=== PATIENT | female | born 1955 | race Caucasian/White ===

== ENCOUNTER 2016-07-04 17:33 | Inpatient (IN) | payer OTHER ==
--- NOTE | 2016-07-04 18:36 | EDPHY ---
HPI/HX/ROS/PE/MDM Narrative: CHIEF COMPLAINT: Trigeminal neuralgia HPI: The patient is a 61 y/o female with a history of trigeminal neuralgia and fibromyalgia, complaining of facial pain that is making it difficult for her to eat, drink, and talk for the last 3 days[address] She went to Dr. Olvera, ENT, yesterday for these symptoms. He ordered a CT of her sinuses that she had done today at [facility], but hasn't received results yet. They went to urgent care prior to presenting here and received IV fluids for rehydration but did not prescribe pain medications. Her says that "ingesting liquid or solid triggers the trigeminal neuralgia" and is requesting "something to cut the pain enough so she can take oral medication at home" and is specifically requesting an oral pain medication for her to take home and well as IV pain medications here. She has an appointment scheduled with her neurologist for Thursday, but feels she cannot wait that long. History primarily obtained from and partially from patient through writing as talking causes pain. REVIEW OF SYSTEMS: Aside from elements discussed in the HPI, a comprehensive 10-point review of systems was reviewed and is negative. PMH: Trigeminal neuralgia, fibromyalgia SOCIAL HISTORY: at bedside ENT: Dr. Olvera Neurologist: Dr. De La O PHYSICAL EXAM: General:Patient is alert, in no acute distress. ENT:Eyes are normal to inspection. ENT inspection normal. Neck: Normal inspection. Full range of motion. Respiratory:No respiratory distress. Breath sounds normal bilaterally. Cardiovascular: Regular rate and rhythm. Strong peripheral pulses. Normal cap refill. Abdomen:The abdomen is nontender to palpation. There are no peritoneal signs. There are normal bowel sounds. Back: Normal to inspection. No tenderness to palpation. Skin: Normal color. No rash. Warm and dry. Extremities: Normal appearance. Full range of motion. Neuro: Oriented x3. Normal motor function. Normal sensory function. ED Course: IV established. Labs drawn including CBC, CHEM. 1L IV NS, 0.5mg IV Dilaudid, and 10mg IV Decadron administered. 2049: Reevaluated patient. She still cannot tolerate talking or swallowing. She does not think she will be able to drink water at home. Plan for admission for pain control and continued hydration. 2109: Spoke with Dr. Plaza, hospitalist. He accepts admission. MDM: This patient presents with severe facial pain that she attributes to a diagnosis of trigeminal neuralgia. Her affect is very unusual and she is essentially sits in the emergency department room with her face completely flaccid and needs to write everything down because speaking is too painful. None of the pain medications we tried here in the emergency department very helpful. Patient is requesting a complete evaluation by Neurology and prescriptions for multiple agents to try and control trigeminal neuralgia. I explained that given the fact she is still unable to tolerate anything by mouth here in the emergency department that she will require admission to the hospital for further workup. I am unclear whether this patient truly has trauma gentleman neuralgia, but there certainly seems to be a complex pain syndrome at work. - Data Points Laboratory Results: Laboratory Results 07/04/16 18:40 07/04/16 18:40 07/04/16 07/04/16 18:40 18:40 WBC 6.05 10^3/uL 10^3/uL (3.80-9.50) RBC 4.32 10^6/uL 10^6/uL (4.18-5.33) Hgb 14.1 g/dL g/dL (12.6-16.3) Hct 42.0 % % (38.0-47.0) MCV 97.2 fL fL (81.5-99.8) MCH 32.6 pg pg (27.9-34.1) MCHC 33.6 g/dL g/dL (32.4-36.7) RDW 12.5 % % (11.5-15.2) Plt Count 187 10^3/uL 10^3/uL (150-400) MPV 9.8 fL fL (8.7-11.7) Neut % (Auto) 60.6 % % (39.3-74.2) Lymph % (Auto) 28.9 % % (15.0-45.0) [place] % (Auto) 8.3 % % (4.5-13.0) Eos % (Auto) 1.2 % % (0.6-7.6) Baso % (Auto) 0.7 % % (0.3-1.7) Nucleat RBC Rel Count 0.0 % % (0.0-0.2) Absolute Neuts (auto) 3.67 10^3/uL 10^3/uL (1.70-6.50) Absolute Lymphs (auto) 1.75 10^3/uL 10^3/uL (1.00-3.00) Absolute Monos (auto) 0.50 10^3/uL 10^3/uL (0.30-0.80) Absolute Eos (auto) 0.07 10^3/uL 10^3/uL (0.03-0.40) Absolute Basos (auto) 0.04 10^3/uL 10^3/uL (0.02-0.10) Absolute Nucleated RBC 0.00 10^3/uL 10^3/uL (0-0.01) Immature Gran % 0.3 % % (0.0-1.1) Immature Gran # 0.02 10^3/uL 10^3/uL (0.00-0.10) Sodium 141 mEq/L mEq/L (134-144) Potassium 4.3 mEq/L mEq/L (3.5-5.2) Chloride 107 mEq/L mEq/L (97-110) Carbon Dioxide 21 mEq/l L mEq/l (22-31) Anion Gap 13 mEq/L mEq/L (8-16) BUN 30 mg/dL H mg/dL (7-23) Creatinine 0.6 mg/dL mg/dL (0.6-1.0) Estimated GFR > 60 Glucose 63 mg/dL L mg/dL (70-100) Calcium 9.4 mg/dL mg/dL (8.5-10.4) Medications Given: Discontinued Medications Dexamethasone (Decadron Injection) 10 mg IVP EDNOW ONE Stop: 07/04/16 18:56 Last Admin: 07/04/16 19:15 Dose: 10 mg Hydromorphone HCl (Dilaudid) 0.5 mg IVP EDNOW ONE Stop: 07/04/16 18:55 Last Admin: 07/04/16 19:15 Dose: 0.5 mg Hydromorphone HCl (Dilaudid) 0.5 mg IVP EDNOW ONE Stop: 07/04/16 20:04 Last Admin: 07/04/16 20:04 Dose: 0.5 mg Sodium Chloride (Ns) 1,000 mls @ 0 mls/hr IV ONCE ONE PRN Reason: Wide Open Stop: 07/04/16 18:52 Last Admin: 07/04/16 19:15 Dose: 1,000 mls General Time Seen by Provider: 07/04/16 18:20 Initial Vital Signs: Initial Vital Signs Temperature (C) 36.4 C 07/04/16 17:38 Heart Rate 96 07/04/16 17:38 Respiratory Rate 20 07/04/16 17:38 Blood Pressure 155/98 H 07/04/16 17:38 O2 Sat (%) 96 07/04/16 17:38 O2 Delivery Mode Room Air Allergies/Adverse Reactions: cobalt [[place]] Allergy (Intermediate, Verified 06/08/12 14:26) Gold Salts Allergy (Intermediate, Verified 06/08/12 14:26) nickel [Nickel] Allergy (Intermediate, Verified 06/08/12 14:26) Penicillins Allergy (Intermediate, Verified 06/08/12 14:26) Sulfa (Sulfonamide Antibiotics) Allergy (Intermediate, Verified 06/08/12 14:26) vancomycin Allergy (Intermediate, Verified 06/08/12 14:26) aspirin Allergy (Mild, Verified 06/08/12 14:26) diphenhydramine HCl [From Benadryl] Allergy (Verified 03/14/16 13:19) donnetal Allergy (Intermediate, Uncoded 06/08/12 14:26) dust,mold,trees Allergy (Mild, Uncoded 06/08/12 14:26) Home Medications: Medication Instructions Recorded Acetaminophen/Caffeine [Excedrin 2 each PO Q8 PRN 03/14/16 Tension Headache Cplt] Cetirizine [ZyrTEC 10 mg (*)] 10 mg PO Q2D@2100 03/14/16 Guaifenesin 50 mg PO DAILY PRN 03/14/16 Herbals/Supplements -Info Only 1 ea PO AD 03/14/16 Hyoscyamine Sulfate [Levsin, 0.3125 mg PO DAILY PRN 03/14/16 Hyomax-Sl 0.125 mg (*)] Melatonin [Melatonin 3 MG (*)] 3 mg PO HS 03/14/16 Pseudoephedrine HCl [Sudafed 30mg 30 mg PO BID 03/14/16 (OTC)] Cholecalciferol Vit D3 [Vitamin D3 1,000 units PO DAILY 07/04/16 (*)] Estradiol [Minivelle] 1 each TD MOTH 07/04/16 Glutathione Iv 1 ea IV Q7D 07/04/16 Loratadine [Claritin 10 mg] 10 mg PO Q2D@2100 07/04/16 Progesterone 52mg Tablet Compounded 1 tab PO HS 07/04/16 Pseudoephedrine HCl [Sudafed 30mg 30 mg PO HS PRN 07/04/16 (OTC)] Oxcarbazepine [Trileptal] 150 mg PO BID #60 tablet 07/06/16 Departure - Departure Disposition: [facility] Acute Clinical Impression: Trigeminal neuralgia Condition: Good Report Scribed for: Basilio Reed Report Scribed by: Mary Pitt Date of Report: 07/04/16 Time of Report: 18:32 Physician Review and Approval Statement: Portions of this note were transcribed by an ED scribe. I personally performed the history, physical exam, and medical decision making; and confirm the accuracy of the information in the transcribed note.
[2016-07-04] MEDS ORDERED: NS 1,000 ML IV ONE (18:51)
[2016-07-04] MEDS ORDERED: HYDROmorphONE/DILAUDID 1 MG/ML SYR IVP ONE ×2 (18:54→20:03)
[2016-07-04] MEDS ORDERED: DEXAMETHASONE 10 MG/ML VIAL IVP ONE (18:55)
[2016-07-04 19:24] LABS: % IMMATURE GRANULYOCYTES 0.3 % (0.0-1.1); ABSOLUTE IMMATURE GRANULOCYTES 0.02 10^3/uL (0.00-0.10); ADD DIFF? NO; ADD MORPH? NO; ADD SCAN? NO; ATYPICAL LYMPHOCYTE FLAG 0 (0-99); FRAGMENT RBC FLAG 0 (0-99); HEMOGLOBIN 14.1 g/dL (12.6-16.3); LEFT SHIFT FLG 0 (0-99); LIPEMIA HEMOLYSIS FLAG 80 (0-99); MEAN CELL HEMOGLOBIN 32.6 pg (27.9-34.1); MEAN CELL HEMOGLOBIN CONCENTR. 33.6 g/dL (32.4-36.7); MEAN CELL VOLUME 97.2 fL (81.5-99.8); MEAN PLATELET VOLUME 9.8 fL (8.7-11.7); PLATELET CLUMPS FLAG 0 (0-99); PLATELET COUNT 187 10^3/uL (150-400); RED BLOOD CELL COUNT 4.32 10^6/uL (4.18-5.33); RED CELL DISTRIBUTION WIDTH 12.5 % (11.5-15.2)
[2016-07-04 19:45] LABS: ANION GAP 13 mEq/L (8-16); CALCIUM 9.4 mg/dL (8.5-10.4); CARBON DIOXIDE 21 mEq/l (22-31); CHLORIDE 107 mEq/L (97-110); CREATININE 0.6 mg/dL (0.6-1.0); GLOMERULAR FILTRATION RATE > 60; GLUCOSE 63 mg/dL (70-100); POTASSIUM 4.3 mEq/L (3.5-5.2); SODIUM 141 mEq/L (134-144)
[2016-07-04] MEDS ORDERED: HYDROmorphONE/DILAUDID 1 MG/ML SYR ONE (20:01)
[2016-07-04] MEDS ORDERED: ONDANSETRON DISINTEGRATING 4 MG TAB PO PRN (22:14)
[2016-07-04] MEDS ORDERED: ACETAMINOPHEN 325 MG TAB PO PRN (22:14)
[2016-07-04] MEDS ORDERED: ONDANSETRON 4 MG/2 ML VIAL IVP PRN (22:14)
[2016-07-04] MEDS ORDERED: NALOXONE HCL 0.4 MG/ML INJ IVP PRN (22:17)
[2016-07-04] MEDS ORDERED: HYDROmorphONE/DILAUDID 6 MG/30 ML PCA IV PRN (22:17)
[2016-07-04] MEDS: NS 1,000 ML IV SCH (22:57)
[2016-07-05] MEDS: DIAZEPAM 10 MG/2 ML SYR IVP PRN ×2 (00:06→07:16)
--- NOTE | 2016-07-05 03:16 | PDGENHP ---
History and Physical - Chief Complaint R facial pain - History of Present Illness Patient is a 61-year-old female with history of trigeminal neuralgia, fibromyalgia, IBS and restless leg syndrome presents to the ED complaining of severe left facial pain. Patient states symptoms started on 06/29 with increase in her R facial pain consistent with her TN, described as a sharp, shooting type pain occasionally associated with spasm of her facial muscles. Initially her pain and symptoms were sporadic and intermittent however over the following days the frequency of her symptoms increased. By 07/01 patient began noticing difficulty swallowing due to the acute pain in her right face. She states that any movements of her facial muscles provoke intense pain. Since this time patient has been unable to maintain p.o. intake of food or liquids, or even talking due to fear of triggering her pain. On 07/03 patient was evaluated by an ENT for her difficulty swallowing, CT of the c-spine was performed at [facility], patient was given a copy of the images on CD. Patient scheduled an appointment with her neurologist for 07/08, however the severity and persistence of her symptoms that made her come to the ED for further evaluation tonight. She denies any recent fevers, chills, dizziness, lightheadedness, chest pain, shortness of breath or cough. She does report associated headache, but denies any vision changes. Regarding her trigeminal neurologia, patient follows with Dr. Casper of Neurology, is not not currently on any prescribed therapy, has previously been on oxcarbazepine/carbamazepine. Patient reports current symptoms is consistent with a more severe exacerbation of her TN. She does report milder symptoms occurred in April, last for only 1 day and not nearly as severe. on arrival the ED patient was afebrile hemodynamically stable. Labs revealed normal CBC, elevated BUN, low glucose on BMP. Patient was given IV pain control and admitted to the hospital service for further management. History Information - Allergies/Home Medication List Allergies/Adverse Reactions: cobalt [[place]] Allergy (Intermediate, Verified 06/08/12 14:26) Gold Salts Allergy (Intermediate, Verified 06/08/12 14:26) nickel [Nickel] Allergy (Intermediate, Verified 06/08/12 14:26) Penicillins Allergy (Intermediate, Verified 06/08/12 14:26) Sulfa (Sulfonamide Antibiotics) Allergy (Intermediate, Verified 06/08/12 14:26) vancomycin Allergy (Intermediate, Verified 06/08/12 14:26) aspirin Allergy (Mild, Verified 06/08/12 14:26) diphenhydramine HCl [From Benadryl] Allergy (Verified 03/14/16 13:19) donnetal Allergy (Intermediate, Uncoded 06/08/12 14:26) dust,mold,trees Allergy (Mild, Uncoded 06/08/12 14:26) Home Medications: Acetaminophen/Caffeine [Excedrin Tension Headache Cplt] 2 each PO Q8 PRN [Last Taken 07/04/16 10:00] Cetirizine [ZyrTEC 10 mg (*)] 10 mg PO Q2D@209903/14/16 [Last Taken 07/02/16] Guaifenesin 50 mg PO DAILY PRN 03/14/16 [Last Taken 07/03/16] Herbals/Supplements -Info Only 1 ea PO AD 03/14/16 [Last Taken Unknown] Hyoscyamine Sulfate [Levsin, Hyomax-Sl 0.125 mg (*)] 0.3125 mg PO DAILY PRN [Last Taken Unknown] Melatonin [Melatonin 3 MG (*)] 3 mg PO HS 03/14/16 [Last Taken 07/03/16] Pseudoephedrine HCl [Sudafed] 30 mg PO BID 03/14/16 [Last Taken Unknown] Cholecalciferol Vit D3 [Vitamin D3 (*)] 1,000 units PO DAILY 07/04/16 [Last Taken Unknown] Estradiol [Minivelle] 1 each TD MOTH 07/04/16 [Last Taken 07/03/16] Glutathione Iv 1 ea IV Q7D 07/04/16 [Last Taken Unknown] Loratadine [Claritin 10 mg] 10 mg PO Q2D@209907/04/16 [Last Taken 07/03/16] Progesterone 52mg Tablet Compounded 1 tab PO HS 07/04/16 [Last Taken Unknown] Pseudoephedrine HCl [Sudafed] 30 mg PO HS PRN 07/04/16 [Last Taken Unknown] I have personally reviewed and updated: family history, medical history, social history, surgical history Past Medical History: history limited by patient's limited ability speak due to her pain - Past Medical History Additional medical history: Trigeminal neuralgia. fibromyalgia. restless leg syndrome. IBS - Surgical History Reports: no pertinent surgical hx - Social History Smoking Status: Never smoked Alcohol Use: None Drug Use: None Additional social history: is retired [employer] professor, therapist. lives with her Review of Systems ROS: 10pt was reviewed & negative except for what was stated in HPI & below Physical Exam Temp Pulse Resp BP Pulse Ox 36.4 C 89 14 138/87 H 94 07/04/16 23:56 07/05/16 02:28 07/05/16 02:28 07/05/16 02:28 07/05/16 02:28 Constitutional: no apparent distress, appears nourished, uncomfortable Eyes: PERRL, anicteric sclera, EOMI, No scleral injection Ears, Nose, Mouth, Throat: hearing normal, ears appear normal, no oral mucosal ulcers, dry mucous membranes Cardiovascular: regular rate and rhythym, no murmur, rub, or gallop, pulses symmetric bilaterally, tachycardia, No JVD, No edema Peripheral Pulses: 2+: dorsalis-pedis (R), dorsalis-pedis (L) Respiratory: no respiratory distress, no rales or rhonchi, clear to auscultation Gastrointestinal: normoactive bowel sounds, soft, non-tender abdomen, no palpable masses, No guarding, No rebound Genitourinary: no bladder fullness, no bladder tenderness Skin: warm, normal color, no rashes or abrasions, no fluctuance, no induration, No mottled Musculoskeletal: full muscle strength, no muscle tenderness, normal joint ROM, no joint effusions, pain with ROM ( of jaw and facial muscles) Neurologic: AAOx3, sensation intact bilaterally, CN II-XII Intact, other (acute tenderness with light palpation of entire R face and neck; occasional facial muscle spasm), No weakness, No numbness Psychiatric: not encephalopathic, thought process linear, anxious Lab Data & Imaging Review 07/05/16 04:27 07/05/16 04:27 WBC 6.05 10^3/uL (3.80-9.50) 07/04/16 18:40 RBC 4.32 10^6/uL (4.18-5.33) 07/04/16 18:40 Hgb 14.1 g/dL (12.6-16.3) 07/04/16 18:40 Hct 42.0 % (38.0-47.0) 07/04/16 18:40 MCV 97.2 fL (81.5-99.8) 07/04/16 18:40 MCH 32.6 pg (27.9-34.1) 07/04/16 18:40 MCHC 33.6 g/dL (32.4-36.7) 07/04/16 18:40 RDW 12.5 % (11.5-15.2) 07/04/16 18:40 Plt Count 187 10^3/uL (150-400) 07/04/16 18:40 MPV 9.8 fL (8.7-11.7) 07/04/16 18:40 Neut % (Auto) 60.6 % (39.3-74.2) 07/04/16 18:40 Lymph % (Auto) 28.9 % (15.0-45.0) 07/04/16 18:40 [place] % (Auto) 8.3 % (4.5-13.0) 07/04/16 18:40 Eos % (Auto) 1.2 % (0.6-7.6) 07/04/16 18:40 Baso % (Auto) 0.7 % (0.3-1.7) 07/04/16 18:40 Nucleat RBC Rel Count 0.0 % (0.0-0.2) 07/04/16 18:40 Absolute Neuts (auto) 3.67 10^3/uL (1.70-6.50) 07/04/16 18:40 Absolute Lymphs (auto) 1.75 10^3/uL (1.00-3.00) 07/04/16 18:40 Absolute Monos (auto) 0.50 10^3/uL (0.30-0.80) 07/04/16 18:40 Absolute Eos (auto) 0.07 10^3/uL (0.03-0.40) 07/04/16 18:40 Absolute Basos (auto) 0.04 10^3/uL (0.02-0.10) 07/04/16 18:40 Absolute Nucleated RBC 0.00 10^3/uL (0-0.01) 07/04/16 18:40 Immature Gran % 0.3 % (0.0-1.1) 07/04/16 18:40 Immature Gran # 0.02 10^3/uL (0.00-0.10) 07/04/16 18:40 Sodium 141 mEq/L (134-144) 07/04/16 18:40 Potassium 4.3 mEq/L (3.5-5.2) 07/04/16 18:40 Chloride 107 mEq/L (97-110) 07/04/16 18:40 Carbon Dioxide 21 mEq/l (22-31) L 07/04/16 18:40 Anion Gap 13 mEq/L (8-16) 07/04/16 18:40 BUN 30 mg/dL (7-23) H 07/04/16 18:40 Creatinine 0.6 mg/dL (0.6-1.0) 07/04/16 18:40 Estimated GFR > 60 07/04/16 18:40 Glucose 63 mg/dL (70-100) L 07/04/16 18:40 Calcium 9.4 mg/dL (8.5-10.4) 07/04/16 18:40 Assessment & Plan Assessment: patient is a 61-year-old female with history of trigeminal neuralgia who presents to the ED complaining of 1 week of intense right-sided facial pain consistent with her TN pain, that has recently a impaired her ability to speak and swallow. Plan: # acute trigeminal neuralgia pain Patient reports acute, severe pain and spasm of her R face, neck and upper back. She reports her symptoms are consistent with her TN, in acute exacerbation. She reports having success in controlling her symptoms with carbamazepine and/or oxcarbazepine, and is interested in starting this, however , currently cannot take PO intake due to her acute facial spasm and pain. States any facial muscle movement creates intense 10/10 pain. Will attempt to control her pain and spasm with IV pain med and benzos to tolerate oral intake. Will start oxycarbazepine once able to take PO. Will also obtain neurology consult and obtain MRI brain to r/o underlying structural/vasculature abnormality. # dysphagia/dysphonia Patient reports intense R facial pain with any facial muscle movement, especially with swallowing. She had a CT cspine to evaluated this on 07/03, will need to locate CD (with pt's ) or contact [facility] for the report. Infectious etiology/abscess is on the differential, however, patient without any other infectious symptoms/signs, and presentation appears to be related to the TN. # elevated BUN Patient has been unable to maintain any oral intake since 07/01. Labs reveal evidence of mild dehydration, will give gentle IVF hydration and attempt to control symptoms to allow for po intake. # dispo: will admit under observation status, patient may be ok for discharge once symptoms are controlled and able to take po # full code *patient was seen and evaluated on 07/04; patient encounter will be billed for .
[2016-07-05 05:15] LABS: % IMMATURE GRANULYOCYTES 0.3 % (0.0-1.1); ABSOLUTE IMMATURE GRANULOCYTES 0.02 10^3/uL (0.00-0.10); ADD DIFF? NO; ADD MORPH? NO; ADD SCAN? NO; ATYPICAL LYMPHOCYTE FLAG 0 (0-99); FRAGMENT RBC FLAG 0 (0-99); LEFT SHIFT FLG 0 (0-99); LIPEMIA HEMOLYSIS FLAG 80 (0-99); MEAN CELL HEMOGLOBIN CONCENTR. 33.3 g/dL (32.4-36.7); MEAN CELL VOLUME 96.1 fL (81.5-99.8); MEAN PLATELET VOLUME 9.9 fL (8.7-11.7); PLATELET CLUMPS FLAG 0 (0-99); PLATELET COUNT 176 10^3/uL (150-400); RED BLOOD CELL COUNT 4.06 10^6/uL (4.18-5.33); RED CELL DISTRIBUTION WIDTH 12.2 % (11.5-15.2)
[2016-07-05 05:34] LABS: ANION GAP 10 mEq/L (8-16); CALCIUM 8.6 mg/dL (8.5-10.4); CARBON DIOXIDE 20 mEq/l (22-31); CHLORIDE 110 mEq/L (97-110); CREATININE 0.6 mg/dL (0.6-1.0); GLOMERULAR FILTRATION RATE > 60; GLUCOSE 100 mg/dL (70-100); POTASSIUM 4.6 mEq/L (3.5-5.2); SODIUM 140 mEq/L (134-144)
[2016-07-05 05:38] LABS: INR 1.05 (0.83-1.16); PROTIME(PATIENT) 13.6 SEC (12.0-15.0)
[2016-07-05 05:39] LABS: APTT 26.5 SEC (23.0-38.0)
[2016-07-05] MEDS: OXcarbazepine 300 MG TAB PO SCH ×2 (08:45→20:07)
[2016-07-05] MEDS: ENOXAPARIN 40 MG/0.4 ML SYR SC SCH (08:45)
[2016-07-05 09:18] LABS: HEMATOCRIT 39.9 % (38.0-47.0)
--- NOTE | 2016-07-05 10:57 | PDCONSULT ---
[employer] Note: HOSPITAL NEUROLOGY CONSULT REQUESTING: Irma Munson DO REASON: trigeminal neuralgia - acute HPI: This is a 61-year-old woman with a history of trigeminal neuralgia on the right , IBS, fibromyalgia and RLS who presented to Emergency Department yesterday due to acute exacerbation of her trigeminal neuralgia form pain. The patient has limited verbal communication abilities due to triggering her pain, so she provides limited history through writing. Patient was initially diagnosed with trigeminal neuralgia on the right [place] [address] De La O. At that time she had been experiencing right-sided facial pain in the cheek region manifest as quick, sharp stabs of pain and electrical shock- like sensations that limited her ability to chew/eat and swallow. Her typical exacerbating factors during attacks including touching the face, moving the face /speaking, chewing and turning the head quickly. She states she had an MRI at that time which she states was unremarkable. She denies ever having any neurologic deficit in the face such as numbness or weakness. She states she previously had been maintained on carbamazepine and also was trialed on oxcarbazepine at 1 point, which seem to help prevent attacks. However, she did not continue with follow-up and is not taking these medications in quite some time. Patient states that over the past week she has been experiencing severe and frequent shock-like sensations and stabbing sensations in the right face with typical exacerbating factors consistent with her trigeminal neuralgia. This has limited her ability to speak and eat/drink. She cannot identify any particular event or trigger for her acute attacks. She states she is getting these jolts of pain every couple minutes and they are intolerable. She states that it seems like over the past 2 months her pain has been increasing in frequency. She has had no new neurologic deficits. She has been admitted for pain control. She got a dose of IV steroids in the emergency department. She has been getting benzos and opiate analgesics, which she states seemed to make her nauseated and sleepy. She is still getting the acute pain despite these medicines. ROS: As per the HPI, otherwise a complete 12 point ROS was performed and is negative ALLERGIES AND MEDS: As recorded in the EMR - reviewed and reconciled PFSH: As per the intake H&P by Dr. Munson from 07/05/16 EXAM: Her exam is limited due to stimulus provoking her pain - she further does not want to be thoroughly examined out of personal preference GEN: WDWN - she is seen having abrupt twinges of discomfort every 1-2 minutes HEENT: NCAT, sclera anicteric, conjunctiva not injected, MMM, oropharynx clear. She will not let me touch her face. NECK: supple, nontender, no meningismus CV: RRR s1 s2 wo m/r/c/g. Carotid pulses 2+ wo bruit NEURO: MS: awake, alert, oriented to all spheres. Limited speech output due to pain, but it is nondysarthric. No language disturbance. Follows commands. Attends to both sides. Recent/remote memory grossly intact. Mood agitated. Good fund of knowledge. CN: pupils 3mm round and reactive. Intolerant of fundoscopy. VFF. Primary gaze centered. Full ocular motility. She will not let me touch her face. Face symmetric. Hearing grossly intact. Tongue protrudes midline. Shoulder shrug intact - she will not perform head turning MOTOR: normal bulk/tone. No adventitial movements. Full power throughout. SENSORY: intact to all modalities throughout. No extinction. COORD: no ataxia FN/HS. Shanon preserved. REFLEX: plantars down. No clonus. She won't let me test DTRs GAIT: she does not want to walk due to the pain DATA REVIEW: Labs reviewed in EMR PERSONALLY INTERPRETED RESULTS AND DATA: None IMPRESSION AND RECOMMENDATIONS: // TRIGEMINAL NEURALGIA - ACUTE EXACERBATION Her pain semiology is consistent with trigeminal neuralgia. She has never had a neuro deficit and denies one at this point. Therefor, we can hold on neuroimaging. Focus will be on aborting her acute pain. We will use fosphenytoin [place] protocol by giving 100 mgpe IV q 10 mins until pain improves, max total dose 1000 mgpe. This regimen tends to provide effective rapid pain relief in acute trigeminal neuralgia exacerbations. She can continue with sparing use of narcotic analgesic only for breakthrough. She has been started on oxcarbazepine 300mg BID for maintenance, with which I agree. WBC 6.15 10^3/uL (3.80-9.50) 07/05/16 04:27 RBC 4.06 10^6/uL (4.18-5.33) L 07/05/16 04:27 Hgb 13.0 g/dL (12.6-16.3) 07/05/16 04:27 Hct 39.9 % (38.0-47.0) 07/05/16 04:27 MCV 96.1 fL (81.5-99.8) 07/05/16 04:27 MCH 32.0 pg (27.9-34.1) 07/05/16 04:27 MCHC 33.3 g/dL (32.4-36.7) 07/05/16 04:27 RDW 12.2 % (11.5-15.2) 07/05/16 04:27 Plt Count 176 10^3/uL (150-400) 07/05/16 04:27 MPV 9.9 fL (8.7-11.7) 07/05/16 04:27 Neut % (Auto) 85.4 % (39.3-74.2) H 07/05/16 04:27 Lymph % (Auto) 13.0 % (15.0-45.0) L 07/05/16 04:27 [place] % (Auto) 1.0 % (4.5-13.0) L 07/05/16 04:27 Eos % (Auto) 0.0 % (0.6-7.6) L 07/05/16 04:27 Baso % (Auto) 0.3 % (0.3-1.7) 07/05/16 04:27 Nucleat RBC Rel Count 0.0 % (0.0-0.2) 07/05/16 04:27 Absolute Neuts (auto) 5.25 10^3/uL (1.70-6.50) 07/05/16 04:27 Absolute Lymphs (auto) 0.80 10^3/uL (1.00-3.00) L 07/05/16 04:27 Absolute Monos (auto) 0.06 10^3/uL (0.30-0.80) L 07/05/16 04:27 Absolute Eos (auto) 0.00 10^3/uL (0.03-0.40) L 07/05/16 04:27 Absolute Basos (auto) 0.02 10^3/uL (0.02-0.10) 07/05/16 04:27 Absolute Nucleated RBC 0.00 10^3/uL (0-0.01) 07/05/16 04:27 Immature Gran % 0.3 % (0.0-1.1) 07/05/16 04:27 Immature Gran # 0.02 10^3/uL (0.00-0.10) 07/05/16 04:27 ESR 9 MM/HR (0-30) 07/05/16 04:27 PT 13.6 SEC (12.0-15.0) 07/05/16 04:27 INR 1.05 (0.83-1.16) 07/05/16 04:27 APTT 26.5 SEC (23.0-38.0) 07/05/16 04:27 Sodium 140 mEq/L (134-144) 07/05/16 04:27 Potassium 4.6 mEq/L (3.5-5.2) 07/05/16 04:27 Chloride 110 mEq/L (97-110) 07/05/16 04:27 Carbon Dioxide 20 mEq/l (22-31) L 07/05/16 04:27 Anion Gap 10 mEq/L (8-16) 07/05/16 04:27 BUN 22 mg/dL (7-23) 07/05/16 04:27 Creatinine 0.6 mg/dL (0.6-1.0) 07/05/16 04:27 Estimated GFR > 60 07/05/16 04:27 Glucose 100 mg/dL (70-100) 07/05/16 04:27 Calcium 8.6 mg/dL (8.5-10.4) 07/05/16 04:27 Phosphorus 3.7 mg/dL (2.5-4.5) 07/05/16 04:27 Magnesium 2.0 mg/dL (1.6-2.3) 07/05/16 04:27 TSH 0.148 uIU/mL (0.465-4.680) L 07/05/16 04:27
[2016-07-05] MEDS: FOSPHENYTOIN SODIUM 500 MGPE/10 ML VIAL IVP SCH ×5 (13:08→14:11)
[2016-07-05] MEDS ORDERED: OXcarbazepine 300 MG TAB PO ONE (15:25)
[2016-07-05] MEDS ORDERED: PSEUDOEPHEDRINE HCL 30 MG TAB PO PRN (15:26)
[2016-07-05] MEDS ORDERED: ACETAMINOPHEN PO PRN (15:26)
[2016-07-05] MEDS ORDERED: guaiFENesin 200 MG TAB PO PRN (15:26)
[2016-07-05] MEDS ORDERED: CAFFEINE PO PRN (15:26)
[2016-07-05] MEDS ORDERED: HYOSCYAMINE SULFATE 0.125 MG TAB PO PRN (15:26)
[2016-07-05] MEDS ORDERED: Herbals/Supplements -Info Only PO SCH (15:30)
--- NOTE | 2016-07-05 15:37 | HOSPPROG ---
Hospitalist Progress Note Assessment/Plan: Assessment: 61-year-old female presents with acute face pain Plan: 1. Face pain. Acute, new problem this provider, no further workup indicated. Potential etiologies include trigeminal neuralgia versus symptomatic pain in the setting of known diagnosis of fibromyalgia, irritable bowel syndrome. Patient currently has no neurologic deficits and no neuro imaging is indicated. -she was assigned diagnosis of trigeminal neuralgia [place] [address] De La O whom she has not seen a since that time. -she is not maintained on any maintenance medications and utilizes Excedrin as needed at home -she has good insight into her triggers for her symptoms, including stress, temperature changes, chewing, tactile stimulation -the patient is currently very anxious about activating her pain and would like to advance her oral diet very cautiously, initiating oral liquids with dose of Trileptal at this time -she is status post 5 doses of fosphenytoin she believes that the pain level has responded positively -will trial an oral dose of Trileptal at this time and encourage oral intake of liquids, including Ensure -will attempt to ambulate the patient and have her evaluated by Physical therapy to determine whether she is safe to ambulate independently -if the patient has recurrence of severe pain symptoms, we will provide her with Q 10 minutes dosing of IV fosphenytoin up to 5 subsequent doses a total of 1000 mg for today -if the patient is unable to safely tolerate oral liquids, she will require upgraded to inpatient admission status for ongoing IV fluids as well as ongoing IV fosphenytoin she will be unsafe to maintain oral hydration or oral pain control at home -I have encouraged the patient her to utilize scheduled try left total for the next 2 weeks and follow up closely with Dr. De La O this week to discuss whether she should continue on Trileptal as maintenance therapy or utilize it episodically when she experiences onset of symptoms -I have discussed the patient's situation with our Neurology oracle application consultant Dr. Bloom and he has advised me regarding the fosphenytoin dosing and the use of Trileptal in the situation 2. Irritable bowel syndrome and fibromyalgia. The patient already has somatoform issues which have been diagnosed as fibromyalgia and irritable bowel syndrome in the outpatient setting -will continue on her home medications -will avoid narcotics in the above situation as that will most likely exacerbate any abdominal symptoms Diet. Liquid, advance as tolerates Prophylaxis. High risk patient given mobility, Lovenox 40 Code. Full Disposition. We will upgraded to inpatient admission status if the patient is unable to safely tolerate oral intake reassessment this afternoon given her high risk of worsening morbidity or mortality if unable to safely eat and drink. Subjective: Patient is very cautious about initiating oral liquids, she fears many triggers of her facial pain, her is very concerned about her ability to safely ambulate given her poor intake of solids and liquids recently , the patient and her were extensively counseled regarding these issues Objective: Vital Signs Temp Pulse Resp BP Pulse Ox 36.6 C 97 16 125/67 H 96 07/05/16 14:28 07/05/16 14:28 07/05/16 14:28 07/05/16 14:28 07/05/16 14:28 Laboratory Results 07/05/16 04:27 07/05/16 04:27 07/04/16 07/05/16 07/06/16 05:59 05:59 05:59 Intake Total 1000 Balance 1000 PT 13.6 SEC (12.0-15.0) 07/05/16 04:27 INR 1.05 (0.83-1.16) 07/05/16 04:27 - Time Spent With Patient Time Spent with Patient: greater than 35 minutes Time Spent with Patient: Greater than 35 minutes spent on this patients care, greater than 50% of time spent counseling, educating, and coordinating care regarding the above mentioned plan. - Physical Exam Constitutional: chronically ill appearing, uncomfortable, No not in pain Neurologic: AAOx3 Psychiatric: not encephalopathic, anxious, No agitated ICD10 Worksheet Patient Problems: Problems Problem Status Onset Trigeminal neuralgia Acute
[2016-07-05] MEDS: NS 1,000 ML IV SCH (16:41)
[2016-07-05] MEDS ORDERED: FOSPHENYTOIN SODIUM 500 MGPE/10 ML VIAL IVP PRN (17:56)
[2016-07-05] MEDS: PSEUDOEPHEDRINE HCL 30 MG TAB PO SCH (20:07)
[2016-07-05] MEDS ORDERED: PROGESTERONE PO SCH (21:00)
[2016-07-05] MEDS ORDERED: CETIRIZINE 10 MG TAB PO SCH ×2 (21:00)
[2016-07-05] MEDS ORDERED: NON-FORMULARY NEW DRUG (Loratadine [Claritin 10 Mg] 10 MG) PO SCH (21:00)
[2016-07-05] MEDS ORDERED: MELATONIN 3 MG TAB PO SCH (21:00)
[2016-07-06] MEDS: DIAZEPAM 10 MG/2 ML SYR IVP PRN (00:28)
[2016-07-06 05:08] LABS: % IMMATURE GRANULYOCYTES 0.3 % (0.0-1.1); ABSOLUTE IMMATURE GRANULOCYTES 0.02 10^3/uL (0.00-0.10); ADD DIFF? NO; ADD MORPH? NO; ADD SCAN? NO; ATYPICAL LYMPHOCYTE FLAG 0 (0-99); FRAGMENT RBC FLAG 0 (0-99); HEMATOCRIT 32.7 % (38.0-47.0); LEFT SHIFT FLG 0 (0-99); LIPEMIA HEMOLYSIS FLAG 80 (0-99); MEAN CELL HEMOGLOBIN 31.8 pg (27.9-34.1); MEAN CELL HEMOGLOBIN CONCENTR. 33.6 g/dL (32.4-36.7); MEAN CELL VOLUME 94.5 fL (81.5-99.8); MEAN PLATELET VOLUME 9.8 fL (8.7-11.7); PLATELET CLUMPS FLAG 10 (0-99); PLATELET COUNT 161 10^3/uL (150-400); RED BLOOD CELL COUNT 3.46 10^6/uL (4.18-5.33); RED CELL DISTRIBUTION WIDTH 12.6 % (11.5-15.2)
[2016-07-06 05:40] LABS: ALANINE AMINOTRANSFERASE 97 IU/L (9-52); ALBUMIN 3.1 g/dL (3.5-5.0); ALKALINE PHOSPHATASE 57 IU/L (38-126); ANION GAP 10 mEq/L (8-16); ASPARTATE AMINOTRANSFERASE 44 IU/L (14-46); BILIRUBIN,TOTAL 0.6 mg/dL (0.1-1.4); CALCIUM 8.4 mg/dL (8.5-10.4); CARBON DIOXIDE 22 mEq/l (22-31); CHLORIDE 110 mEq/L (97-110); CREATININE 0.6 mg/dL (0.6-1.0); GLOMERULAR FILTRATION RATE > 60; GLUCOSE 76 mg/dL (70-100); POTASSIUM 3.7 mEq/L (3.5-5.2); SODIUM 142 mEq/L (134-144); TOTAL PROTEIN 5.8 g/dL (6.3-8.2)
[2016-07-06 07:56] VITALS: RESP 16; TEMP 98.2; O2SAT 93
[2016-07-06] MEDS ORDERED: CHOLECALCIFEROL VIT D3 1,000 UNITS TAB PO SCH (09:00)
[2016-07-06] MEDS ORDERED: OXcarbazepine 300 MG TAB PO SCH (09:00)
[2016-07-06] MEDS: PSEUDOEPHEDRINE HCL 30 MG TAB PO SCH (10:10)
[2016-07-06] MEDS: ENOXAPARIN 40 MG/0.4 ML SYR SC SCH ×2 (10:11→10:19)
--- NOTE | 2016-07-06 11:45 | PDDCSUM ---
Discharge Summary Discharge Summary: DISCHARGE SUMMARY FOLLOW-UP ITEMS: 1. Screen patient for depression and anxiety as an outpatient and provide her with mental health services DATE OF ADMISSION: 07/04/2016 DATE OF DISCHARGE: 07/06/2016 DISCHARGE DIAGNOSES: 1. Acute face pain 2. Possible trigeminal neuralgia 3. Irritable bowel syndrome and fibromyalgia CONSULTATIONS: Neurology PROCEDURES / IMAGING: None CHIEF COMPLAINT: Acute face pain SUBJECTIVE: Patient reports a headache at time of discharge, she is ambulating safely, she is swallowing liquids, she agrees to discharge plan PHYSICAL EXAM ON DISCHARGE: Systolic blood pressure is 1/20, heart rate 80, afebrile overnight, satting well on room air, alert awake oriented x3, patient has facial symmetry she is moving all 4 extremities she does not appear to have any neurologic deficits LABS ON DISCHARGE: Creatinine 0.6, BUN 14, potassium 3.7, white blood count 7300, hemoglobin 11 HOSPITAL COURSE BY PROBLEM: 1. Acute face pain. The patient presented with acute face pain possibly secondary to trigeminal neuralgia. It is also suspected that the patient has an overlying functional pain syndrome likely potentiate by under treated depression, anxiety. She has been experiencing this type of face pain since 2011 and has not been on any maintenance medications in the outpatient setting. She describes too many alternative health treatment modalities but these have been unsuccessful in controlling her symptoms. She presented with severe pain and received high doses of IV narcotics and benzodiazepines. She was seen in consultation by neurologist and he recommended directing her treatment to words trigeminal neuralgia with IV fosphenytoin and initiation of oral Trileptal for maintenance and prophylactic therapy. Patient required an upgraded to inpatient admission secondary to her inability to tolerate oral liquids, oral medications, inability to care for self at home secondary to weakness from not eating or drinking for approximately 1 week. Her pain did respond to the IV fosphenytoin and she was titrated off of IV narcotics and benzodiazepines. She successfully completed an oral trial of liquids and was able to begin taking oral medications, oral nutrition normal supplementation, and completed physical and occupational therapy evaluations. She also had orthostatic vital signs performed to ensure that she was not hypovolemic. 2. Possible trigeminal neuralgia. It is possible the patient may have trigeminal neuralgia which was a diagnosis she received from Dr. De La O in 2011. She has an appointment to follow up with this neurologist on Thursday of this week. The patient will be discharged on Trileptal 150 mg twice daily and she can discuss with Dr. De La O whether this should be utilized as abortive therapy versus prophylactic maintenance therapy. I would also recommend that the patient be screen for depression and anxiety as a suspect that these may be overlapping diagnoses and contributing to a functional pain syndrome as outlined above. Given that the patient does not have any neurologic deficits, further neuro imaging is not indicated at this time. It should be noted that temporal arteritis was ruled out with a normal ESR. 3. Irritable bowel syndrome and fibromyalgia. Our Neurology medical record consultant and myself both Aleve that the patient has an overlying functional pain disorder, linking her diagnoses of irritable bowel syndrome, fibromyalgia, trigeminal neuralgia. I recommend working with the patient in the outpatient setting to establish mental health care. DISCHARGE MEDICATIONS: Please see official discharge medication reconciliation sheet in chart , Trileptal 150 mg twice daily. DISCHARGE INSTRUCTIONS: Patient should follow up with Dr. De La O on Thursday as scheduled. TIME SPENT: Greater than 30 minutes were spent on direct patient care, as well as discharge planning and preparation.
[2016-07-06 14:21] VITALS: BP 141/95; PULSE 97
== END 2016-07-06 15:05 | disposition home or self-care (01) | DRG 74 ==
LOC: F3N 21:50 → OBSVTOIN 07-05 15:40
PROVIDERS: ADMIT Internal Medicine; ATTEND Internal Medicine
DX: G50.0 Trigeminal neuralgia (principal); K58.9 Irritable bowel syndrome, unspecified; M79.7 Fibromyalgia; G25.81 Restless legs syndrome; Z88.0 Allergy status to penicillin
CPT/HCPCS: 92610-GN; 96374; 97161-GP; 97165-GO; G0378; J1170; J1650; J2405; Q2009

== ENCOUNTER 2018-05-04 05:39 | Day surgery (SDC) | payer OTHER ==
--- NOTE | 2018-05-02 17:16 | CPEKG ---
Test Reason : preop Blood Pressure : / mmHG Vent. Rate : 077 BPM Atrial Rate : 076 BPM P-R Int : 153 ms QRS Dur : 095 ms QT Int : 417 ms P-R-T Axes : 069 007 036 degrees QTc Int : 472 ms Sinus rhythm Non-specific T wave depressions inferior-laterally Confirmed by Moreno Foreman ([id number]) on 05/02/2018 5:16:21 PM Referred By: Confirmed By:Moreno Foreman
[2018-05-04] MEDS ORDERED: LIDOCAINE 1% 2 ML INJ ID PRN (05:58)
[2018-05-04] MEDS ORDERED: LR 1,000 ML IV ONE (05:58)
--- NOTE | 2018-05-04 06:56 | PDANEPAE ---
ANE Past Medical History - Cardiovascular History Hx Hypertension: No Hx Arrhythmias: No Hx Chest Pain: No Hx Coronary Artery / Peripheral Vascular Disease: No Hx CHF / Valvular Disease: No Hx Palpitations: No - Pulmonary History Hx COPD: No Hx Asthma/Reactive Airway Disease: No Hx Recent Upper Respiratory Infection: No Hx Oxygen in Use at Home: No Hx Sleep Apnea: No Sleep Apnea Screening Result - Last Documented: Negative - Neurologic History Hx Cerebrovascular Accident: No Hx Seizures: No Hx Dementia: No Neurologic History Comment: hx of back surgery 2011. trigeminal neuralgia. DDD - Endocrine History Hx Diabetes: No - Renal History Hx Renal Disorders: No - Liver History Hx Hepatic Disorders: No - Neurological & Psychiatric Hx Hx Neurological and Psychiatric Disorders: Yes Neurological / Psychiatric History Comment: fibromyalgia - Cancer History Hx Cancer: No - Congenital Disorder History Hx Congenital Disorders: No - GI History Hx Gastrointestinal Disorders: Yes Gastrointestinal History Comment: hx of reflux- occ issues currently. colonoscopies with hx of polyp removal. IBS. duloxetine helps bowels move slower - Other Health History Other Health History: wears glasses. acne currently to face. eczema to fingers on right hand - Chronic Pain History Chronic Pain: Yes (fibromyalgia) - Surgical History Prior Surgeries: RIGHT BREAST EXCISIONAL BIOPSY IN 2012. LOW BACK SURGERY 2011. LUMPECTOMY LEFT BREAST 1970. colonoscopies ANE Review of Systems Review of Systems: - Exercise capacity Exercise capacity: >=4 METS METS (RN): 3 METS ANE Patient History - Allergies Allergies/Adverse Reactions: aspirin Allergy (Verified 04/28/18 17:25) turns red and blotchy atropine [From ] Allergy (Verified 04/28/18 17:25) turns beet red capsaicin [pepper] Allergy (Verified 04/28/18 17:25) agrrevates mucosa system cobalt [[place]] Allergy (Verified 04/28/18 17:25) unsure of reaction- tested positive with skin test diphenhydramine HCl [From Benadryl] Allergy (Verified 04/28/18 17:25) strong sensitivity, gets bad RLS symptoms fluconazole Allergy (Verified 04/28/18 17:25) rash/itchy gluten Allergy (Verified 04/28/18 17:25) digestive issues Gold Salts Allergy (Verified 04/28/18 17:25) unsure of reaction- tested positive with skin test grass pollen Allergy (Verified 04/28/18 17:25) hyoscyamine [From ] Allergy (Verified 04/28/18 17:25) turns beet red latex Allergy (Verified 04/28/18 17:25) mucosa/ sinus issues Milk Containing Products [dairy] Allergy (Verified 04/28/18 17:25) aggrevates IBS mold Allergy (Verified 04/28/18 17:25) nickel [Nickel] Allergy (Verified 04/28/18 17:25) unsure of reaction- tested positive with skin test nystatin Allergy (Verified 04/28/18 17:25) rash/ itching oxcarbazepine Allergy (Verified 04/28/18 17:25) turns red Penicillins Allergy (Verified 04/28/18 17:25) sharp headache phenobarbital [From ] Allergy (Verified 04/28/18 17:25) turns beet red phenytoin [From Dilantin] Allergy (Verified 04/28/18 17:25) turns red pregabalin [From Lyrica] Allergy (Verified 04/28/18 17:25) very sensitive to caused swollen legs, ankles and feet scopolamine [From ] Allergy (Verified 04/28/18 17:25) turns beet red Sulfa (Sulfonamide Antibiotics) Allergy (Verified 04/28/18 17:25) bad rash vancomycin Allergy (Verified 04/28/18 17:25) turns beet red and has weird body movements trees Allergy (Uncoded 04/28/18 17:25) - Home Medications Home Medications: Acetaminophen/Caffeine [Excedrin Tension Headache Cplt] Q8 PRN 03/14/16 [Last Taken 18] Cetirizine [ZyrTEC 10 mg (*)] 03/14/16 [Last Taken 05/02/18] Herbals/Supplements -Info Only 03/14/16 [Last Taken 04/28/18] Hyoscyamine Sulfate [Levsin, Hyomax-Sl 0.125 mg (*)] PRN 03/14/16 [Last Taken ] Melatonin [Melatonin 3 MG (*)] HS 03/14/16 [Last Taken 05/01/18] Estradiol [Minivelle] 07/04/16 [Last Taken 05/03/18 12:00] Glutathione Iv 07/04/16 [Last Taken 04/26/18] Loratadine [Claritin 10 mg] Q2D@2100 07/04/16 [Last Taken 05/01/18] Progesterone 52mg Tablet Compounded HS 07/04/16 [Last Taken 05/03/18 23:00] Pseudoephedrine HCl [Sudafed 30mg (OTC)] HS PRN 07/04/16 [Last Taken 05/01/18] DULoxetine 04/28/18 [Last Taken 05/03/18 19:00] Gabapentin Q8H 04/28/18 [Last Taken 05/03/18 23:00] Ibuprofen 05/04/18 [Last Taken 05/04/18 02:30] - NPO status NPO Since - Liquids (Date): 05/03/18 NPO Since - Liquids (Time): 23:00 NPO Since - Solids (Date): 05/03/18 NPO Since - Solids (Time): 23:00 - Smoking Hx Smoking Status: Never smoked - Family Anes Hx Family Hx Anesthesia Complications: none ANE Labs/Vital Signs - Vital Signs Vital Signs: reviewed preoperatively; see RN documention for details Blood Pressure: 142/84 Heart Rate: 74 Respiratory Rate: 13 O2 Sat (%): 92 Height: 165.1 cm Weight: 70.307 kg ANE Physical Exam - Airway Neck exam: FROM Mallampati Score: Class 4 Mouth exam: small mouth opening - Pulmonary Pulmonary: no respiratory distress - Cardiovascular Cardiovascular: regular rate and rhythym - ASA Status ASA Status: II ANE Anesthesia Plan Anesthesia Plan: GA w LMA
[2018-05-04] MEDS ORDERED: MIDAZOLAM 2 MG/2 ML VIAL IVP ONE (07:06)
[2018-05-04] MEDS ORDERED: PROPOFOL 200 MG/20 ML VIAL ONE (07:11)
[2018-05-04] MEDS ORDERED: PROPOFOL/EMULSION 500 MG/50 ML BOTTLE IV ONE (07:11)
[2018-05-04] MEDS ORDERED: fentaNYL 100 MCG/2 ML INJ ONE (07:11)
[2018-05-04] MEDS ORDERED: KETOROLAC 30 MG/1 ML SDV ONE (07:14)
[2018-05-04] MEDS ORDERED: RANITIDINE 50 MG/2 ML VIAL ONE (07:14)
[2018-05-04] MEDS ORDERED: ONDANSETRON 4 MG/2 ML VIAL ONE (07:16)
--- NOTE | 2018-05-04 07:22 | PDHPUP ---
History & Physical Update H&P update statement: This history and physical update is based on an assessment of the patient which was completed after admission or registration (within 24 hours), but prior to the surgery/procedure. H&P update: H&P reviewed & patient examined, no change in patient's condition since H&P completed
[2018-05-04] MEDS ORDERED: LIDOCAINE 2% 100 MG/5 ML SYR ONE (07:28)
[2018-05-04] MEDS ORDERED: PHENYLEPHRINE HCL 100 MCG/ML SYR IVP PRN (08:02)
[2018-05-04] MEDS ORDERED: DEXAMETHASONE 4 MG/ML VIAL IVP PRN (08:02)
[2018-05-04] MEDS ORDERED: ONDANSETRON 4 MG/2 ML VIAL IVP PRN (08:02)
[2018-05-04] MEDS ORDERED: oxyCODONE IR 5 MG TAB PO PRN (08:02)
[2018-05-04] MEDS ORDERED: fentaNYL 100 MCG/2 ML INJ IVP PRN (08:02)
[2018-05-04] MEDS ORDERED: PROMETHAZINE HCL 25 MG/ML INJ IVP PRN (08:02)
[2018-05-04] MEDS ORDERED: ALBUTEROL 3 ML DEYVIAL IH PRN (08:02)
[2018-05-04] MEDS ORDERED: LABETALOL HCL 20 MG/4 ML INJ IVP PRN (08:02)
[2018-05-04] MEDS ORDERED: NALOXONE HCL 0.4 MG/ML INJ IVP PRN (08:02)
[2018-05-04] MEDS ORDERED: DIAZEPAM 5 MG/ML 1 ML SYR IVP PRN (08:02)
[2018-05-04] MEDS ORDERED: ACETAMINOPHEN 500 MG TAB PO PRN (08:02)
[2018-05-04] MEDS ORDERED: LR 500 ML IV PRN (08:02)
[2018-05-04] MEDS ORDERED: HYDROmorphONE/DILAUDID 2 MG/ML INJ IVP PRN (08:02)
--- NOTE | 2018-05-04 08:50 | POSTOPPROG ---
Post Op Note Date of Operation: 05/04/18 Surgeon: Emely Hernández Anesthesiologist: Razia Carter Anesthesia: Other (Specify) (General with mask) Pre-op Diagnosis: PMB , endometrial polyp Post-op Diagnosis: same Indication: same Procedure: H/S polypectomy Findings: endocervical and endometrial polyp Inf/Abcess present in the surg proc area at time of surgery?: No EBL: Minimal Complications: none Specimen(s): endometrial tissue
--- NOTE | 2018-05-04 09:09 | POSTANESTH ---
Post Anesthetic Evaluation Cardiovascular Status: Normal, Stable Respiratory Status: Normal, Stable Level of Consciousness/Mental Status: Can Participate in Eval, Moderately Sleepy Pain Control: Adequate, Prn Tx Ordered Nausea/Vomiting Control: Adequate, Prn Tx Ordered Complications Possibly Related to Anesthesia: None Noted
[2018-05-04] MEDS: CEPACOL LOZENGE PO PRN ×3 (09:30→10:17)
--- NOTE | 2018-05-04 09:30 | GOP ---
DATE OF OPERATION: 05/04/2018 SURGEON: Emely Hernández MD ANESTHESIA: General with mask. ANESTHESIOLOGIST: Razia Carter MD. PREOPERATIVE DIAGNOSIS: 1. Postmenopausal bleeding. 2. Endometrial and endocervical polyp on ultrasound. POSTOPERATIVE DIAGNOSIS: 1. Postmenopausal bleeding. 2. Endometrial and endocervical polyp on ultrasound. PROCEDURE PERFORMED: Hysteroscopic polypectomy of the endometrium and also of the endocervix. FINDINGS: There was a posterior wall fundal endometrial polyp and then just at the endocervix, there was a posterior wall about 1 cm endocervical polyp. ESTIMATED BLOOD LOSS: Minimal. INDICATIONS: Patient is a 62-year-old who has had a hysteroscopic polypectomy 10 years ago. She has also had an office biopsy in the last few years and refuses any office procedures at this time. She was noted to have postmenopausal bleeding on hormone therapy and was referred by Marlena Parra for ultrasound that showed a 1.1 cm endocervical polyp. Rather than re-attempt another biopsy, the patie nt desires outpatient removal and will proceed with that today. DESCRIPTION OF PROCEDURE: With informed consent signed, the patient was taken to the operating room and placed under general anesthesia and because of her TMJ, she just had a mask instead of an LMA. T he patient was placed in a low dorsal lithotomy position, prepped and draped in the usual sterile fas hion, and bladder previously emptied. The speculum placed in the vagina. Tenaculum placed on the po sterior lip of the cervix, and cervix gently dilated up to 6.5 mm. The Hysteroscope placed using nor mal saline as a filling medium, placed into the uterine cavity, and the above findings noted. The Tr uclear rotary blade was placed into the endometrium, and resection of the endometrial polyp and then the endocervical polyp was removed. Hemostasis was noted. The hysteroscope removed. Patient placed in the supine position and awakened in the operating room and taken to recovery room in stable condi tion. Tolerated the procedure well. Net fluid deficit was 180 cc. COMPLICATIONS: None. Copy requested to: Marlena Buckner /[id number]/MODL
[2018-05-04] MEDS ORDERED: CEPACOL LOZENGE PO ONE (09:37)
[2018-05-04 10:52] VITALS: BP 160/97
== END 2018-05-04 11:08 | disposition home or self-care (01) ==
LOC: FSGY 05:39
PROVIDERS: ATTEND Obstetrics & Gynecology Gynecology
PROC: 0UDB8ZX Extraction of Endometrium, Via Natural or Artificial Opening Endoscopic, Diagnostic (ICD-10-PCS; principal; 2018-05-04 07:15)
DX: N95.0 Postmenopausal bleeding (principal); N84.0 Polyp of corpus uteri; M79.7 Fibromyalgia
CPT/HCPCS: 58558; 93005; C1782; J1885; J2001; J2250; J2405; J2704; J2780; J3010